=== PATIENT | female | born 1990 | race Caucasian/White ===

== ENCOUNTER 2023-07-30 23:14 | Observation (INO) | payer OTHER, SELFPAY ==
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
--- NOTE | 2023-07-30 23:45 | PC.NURSE ---
Dopple heart tones at 132-142.
[2023-07-30 23:54] VITALS: BMI 28.4
--- NOTE | 2023-07-30 23:56 | OBADM ---
This patient, Chayo Guzman, admitted to the OB room [facility] for observation. Patient/family oriented to hospital policies and general routines including ID bracelet, bed and alarms, visiting hours, pain management, procedures, bathroom and other care routines, personal items, smoking policy, room service/diet, and visiting hours. Patient/Family are encouraged to report perceived risks to care and to ask questions if they do not understand what they are told or what they should do.
[2023-07-30 23:59] VITALS: PULSE 78; O2SAT 96
[2023-07-31 00:03] VITALS: BP 110/69; PULSE 84
[2023-07-31 00:04] VITALS: BP 110/69; PULSE 86; RESP 14; O2SAT 98
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
[2023-07-31 00:09] VITALS: PULSE 86; O2SAT 99
--- NOTE | 2023-07-31 00:11 | PC.NURSE ---
Pt to transfer to ER, report given to Jay Russo RN.
[2023-07-31 00:14] VITALS: PULSE 87; O2SAT 98
[2023-07-31 00:19] VITALS: PULSE 69; O2SAT 98
[2023-07-31 00:24] VITALS: PULSE 73; O2SAT 98
--- NOTE | 2023-07-31 00:56 | PC.NURSE ---
Addendum entered by Raisa Zimmer RN 07/31/23 01:00: Note time 0024 Original Note: Uterine activity monitored, TOCO applied 8715-4411, no contractions per monitor or pt. No leaking fluid or trauma to abdomen.
--- NOTE | 2023-08-01 07:54 | PM.OBTRLD ---
OB - Triage/Final Diagnosis Visit Information Reason for evaluation: other ( status post fall) Comments/Additional reasons for admission: I have assessed the risk for this patient, Chayo Guzman, and determined that she would benefit from observation care.
== END 2023-07-31 00:29 ==
PROVIDERS: Admitting Provider Obstetrics & Gynecology Gynecology; Visit Provider Obstetrics & Gynecology Gynecology
DX: Z04.3 Encounter for examination and observation following other accident (principal)
CPT/HCPCS: G0378; G0379

== ENCOUNTER 2023-07-31 00:32 | Emergency (ER) | payer OTHER, SELFPAY ==
--- NOTE | ~2023-07-31 | CT_ITS ---
Non-contrast Head CT History: Head injury Technique: Axial non-contrast imaging of the brain was performed. Dose reduction technique was used on this scan by utilizing automated exposure control and iterative reconstruction technique. The dose -length product (DLP) was 605.33 mGy-cm. Findings: There is no evidence of intracranial hemorrhage, mass lesion, or acute infarct. Right fron jose enrique ventriculostomy shunt catheter in place. Brain parenchyma appears normal. The ventricles and sub arachnoid spaces are slitlike. The calvarium appears normal. The visualized paranasal sinuses and m astoid air cells are clear. Impression: No acute abnormality seen. Ventriculostomy shunt catheter in place. Ventricles and subarachnoid spaces are slitlike, very small. Correlate clinically. Reviewed, dictated and finalized at location M. [facility] PROSPECTOR Impression: No acute abnormality seen. Ventriculostomy shunt catheter in place. Ventricles and subarachnoid spaces are slitlike, very small. Correlate clinically.
[2023-07-31 00:35] VITALS: BP 104/63; PULSE 63; RESP 18; TEMP 37.2; O2SAT 98
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
[2023-07-31 01:02] VITALS: RESP 18; O2SAT 98
[2023-07-31 01:03] LABS: Basophils Percent Auto 0.2 % (0.2-1.2); Eosinophils Absolute Auto 0.1 K/mm3 (0-0.3); Eosinophils Percent Auto 0.9 % (0-4.4); Hematocrit 32.1 % (37.0-47.0); Hemoglobin 10.4 g/dL (12.0-15.0); Immature Granulocyte Absolute 0.03 K/mm3 (0.00-0.031); Immature Granulocyte Percent A 0.2 % (0-0.5); Lymphocytes Absolute Auto 2.14 K/mm3 (0.9-3.2); Lymphocytes Percent Auto 16.4 % (18.3-44.2); Mean Corpuscular HGB Conc 32.4 g/dl (32-36); Mean Corpuscular Volume 95.5 fl (80-100); Monocytes Absolute Auto 0.8 K/mm3 (0.1-0.6); Monocytes Percent Auto 5.7 % (2.6-8.5); Neutrophils Percent Auto 76.6 % (45.5-73.1); Platelet Count Result 444 k/mm3 (150-375); Red Blood Count 3.36 M/mm3 (4.2-5.4); Red Cell Distribution Width 12.9 % (11.5-14.5); White Blood Count 13.1 K/mm3 (4.5-10.0)
[2023-07-31 01:15] LABS: Alanine Aminotransferase 24 U/L (6-35); Albumin Level 3.9 g/dL (3.5-5.1); Alkaline Phosphatase 71 U/L (38-126); Anion Gap 8 mmol/L (8-16); Aspartate Amino Transferase 20 U/L (14-36); Bilirubin,Total 0.5 mg/dL (0.2-1.3); Blood Urea Nitrogen 7 mg/dL (7-17); Calcium 8.8 mg/dL (8.4-10.2); Carbon Dioxide 23 mmol/L (22-30); Chloride 104 mmol/L (98-107); Estimated CRCL calculation 115 ml/min; Estimated Glomerular Filt Rate > 60; Glucose 96 mg/dL (65-110); Potassium 3.6 mmol/L (3.4-5.0); Sodium 135 mmol/L (137-145)
[2023-07-31 02:30] VITALS: BP 111/74; PULSE 81; RESP 15; O2SAT 97
[2023-07-31 02:55] VITALS: BP 109/87; PULSE 90; RESP 14; O2SAT 97
== END 2023-07-31 02:55 | disposition home or self-care (01) ==
PROVIDERS: Emergency Medicine; Emergency Provider Physician Assistant
DX: O9A.312 Physical abuse complicating pregnancy, second trimester (principal); Z3A.24 24 weeks gestation of pregnancy
CPT/HCPCS: 36415; 70450; 80053; 85025; 85461; 86850; 86900; 86901; 99284